=== PATIENT | female | born 1940 | race Caucasian/White ===

== ENCOUNTER → 2016-08-20 | Outpatient (CLI) | payer OTHER, BC ==
[~2016-08-20] MED LIST: ADALAT CC 30 MG30 MG PO; ALPRAZOLAM0.25 M2 PO; AMLODIPINE BESY10 MG PO; AMLODIPINE BESYL5 MG PO; ASPIR-LOW81 MG PO; ATARAX,VISTARIL25 MG PO; ATORVASTATIN CA40 MG PO; CARDIZEM CD,CA180 MG PO; CELEBREX200 MG PO; CELEXA40 MG PO; CITALOPRAM HBR10 MG PO; COZAAR100 MG PO; Coumadin dosing per PO; Cozaar PO; DAILY VITAMIN1 EAC8 PO; DIURETIC; Feosol PO; HYDRODIURIL,O12.5 M2 PO; HYZAAR; IMDUR30 MG PO; KADIAN60 MG PO; LEXAPRO; LOSARTAN-HCTZ1 EAC2 PO; Lotrimin Cream TP; MS CONTIN,ORAMO15 M1 PO; MS CONTIN,ORAMO30 M2 PO; Norvasc PO; OPANA ER40 MG PO; OXYCONTIN15 MG PO; Opana ER PO; PERCOCET 10/1 TABLET PO; PREMARIN0.3 MG PO; Senokot S,Pericolace PO; Sudafed PO; VITAMIN D32000 UNI1 PO; XANAX0.25 MG PO; ZYRTEC10 M2 PO; celeXA PO; oxyCODONE PO
== END | disposition home or self-care (01) ==
LOC: NUC 07:38
DX: R94.6 Abnormal results of thyroid function studies (principal)
CPT/HCPCS: 78014; 78999; A9512; A9531